=== PATIENT | female | born 1970 | race Caucasian/White ===

== ENCOUNTER 2017-04-15 08:51 | Emergency (ER) | payer MEDICAID, OTHER ==
[2017-04-15] MEDS ORDERED: SODIUM CHLORIDE 0.9% 1,000 ML IV STA ×2 (09:07)
[2017-04-15 09:26] LABS: Basophils % (A) 1 %; CH 34.2; CHCM 35.9; Eosinophils # (A) 0.2 k/uL (0-0.7); Eosinophils % (A) 2 %; HCT 44.2 % (34.0-46.0); HDW 2.43; HGB 15.2 gm/dL (11.4-16.0); Luc # (Auto) 0.12; Luc % (Auto) 2; Lymphocytes # (A) 1.9 k/uL (1.0-4.8); Lymphocytes % (A) 29 %; MCH 32.8 pg (25.0-35.0); MCHC 34.3 g/dL (31.0-37.0); MCV 95.6 fL (80.0-100.0); Mean Platelet Volume 7.1; Monocytes # (A) 0.3 k/uL (0-1.0); Monocytes % (A) 5 %; Neutrophils # (A) 4.1 k/uL (1.3-7.7); Neutrophils % (A) 62 %; RBC 4.62 m/uL (3.80-5.40); RDW 13.1 % (11.5-15.5); WBC 6.7 k/uL (3.8-10.6); WBC (Perox) 6.43
[2017-04-15 09:37] LABS: ALT 43 U/L (9-52); AST 30 U/L (14-36); Alkaline Phosphatase 90 U/L (38-126); Anion Gap 13 mmol/L; Blood Urea Nitrogen 6 mg/dL (7-17); Calcium 9.3 mg/dL (8.4-10.2); Carbon Dioxide 23 mmol/L (22-30); Chloride 106 mmol/L (98-107); Glucose 93 mg/dL (74-99); Magnesium 1.8 mg/dL (1.6-2.3); Non-African American GFR(MDRD) >60 (>60 ml/min/1.73 sqM); Potassium 4.6 mmol/L (3.5-5.1); Sodium 142 mmol/L (137-145); Total Bilirubin 0.4 mg/dL (0.2-1.3); Total Protein 7.4 g/dL (6.3-8.2)
[2017-04-15 09:50] LABS: INR 0.9 (<1.2); Partial Thromboplastin Time 22.7 sec (22.0-30.0); Prothrombin Time 9.7 sec (9.0-12.0)
[2017-04-15 09:51] LABS: Creatine Kinase 33 U/L (30-135)
--- NOTE | 2017-04-15 09:53 | XR ---
EXAMINATION TYPE: XR chest 2V DATE OF EXAM: 04/15/2017 COMPARISON: NONE HISTORY: Chest Pain TECHNIQUE: Frontal and lateral views of the chest are obtained. FINDINGS: There is no focal air space opacity, pleural effusion, or pneumothorax seen. The cardiac silhouette size is within normal limits. The osseous structures are intact. IMPRESSION: No acute cardiopulmonary process.
[2017-04-15 10:03] LABS: Creatine Kinase MB 0.4 ng/mL (0.0-2.4); Troponin I <0.012 ng/mL (0.000-0.034)
[2017-04-15 10:34] VITALS: PULSE 73; RESP 19
--- NOTE | 2017-04-15 10:46 | ED ---
General Adult HPI - General Chief complaint: Chest Pain Stated complaint: Chest Pain Time Seen by Provider: 04/15/17 08:53 Source: patient, family, EMS, RN notes reviewed, old records reviewed Mode of arrival: EMS - History of Present Illness Initial comments: 47 yo female with no significant past medical history presents with palpitations and chest tightness. Patient was at work this morning. She be and feeling flushed and lightheaded. She developed some anterior chest tightness with associated shortness of breath. Patient does report being under a lot of stress her mother is sick, and she is in the middle of a bad relationship. She also admits to having a poor night's sleep. Patient was given aspirin and nitroglycerin by EMS prior to arrival. There was no change in her symptoms. She also reports a headache and some nasal congestion. - Related Data Home Medications Medication Instructions Recorded Confirmed Acetaminophen [Tylenol] 650 mg PO Q4H PRN 04/15/17 04/15/17 Allergies Allergy/AdvReac Type Severity Reaction Status Date / Time No Known Allergies Allergy Verified 04/15/17 09:19 Review of Systems ROS Statement: Those systems with pertinent positive or pertinent negative responses have been documented in the HPI. ROS Other: All systems not noted in ROS Statement are negative. Past Medical History Past Medical History: No Reported History Past Surgical History: Breast Surgery, Section Past Psychological History: No Psychological Hx Reported Smoking Status: Never smoker Past Alcohol Use History: Occasional Past Drug Use History: None Reported General Exam Limitations: no limitations General appearance: alert, in no apparent distress Head exam: Present: atraumatic, normocephalic Eye exam: Present: normal appearance, PERRL, EOMI. Absent: scleral icterus, conjunctival injection ENT exam: Present: normal exam Neck exam: Present: normal inspection. Absent: tenderness, meningismus Respiratory exam: Present: normal lung sounds bilaterally. Absent: respiratory distress, wheezes Cardiovascular Exam: Present: regular rate, normal rhythm, normal heart sounds GI/Abdominal exam: Present: soft. Absent: distended, tenderness Extremities exam: Present: normal inspection, full ROM, normal capillary refill. Absent: pedal edema Neurological exam: Present: alert, oriented X3, CN II-XII intact. Absent: motor sensory deficit Psychiatric exam: Present: normal affect, anxious Skin exam: Present: warm, dry, cyanosis. Absent: diaphoretic Course Vital Signs 04/15/17 04/15/17 04/15/17 08:53 10:00 10:28 Temperature 99.2 F Pulse Rate 75 73 Respiratory 18 19 Rate Blood Pressure 103/81 121/71 O2 Sat by Pulse 96 100 Oximetry - Reevaluation(s) Reevaluation #1: 04/15/17 10:42 On reevaluation, patient is feeling much better. She is accompanied by her daughter and grandson. EKG Findings - EKG Comments: EKG Findings:: EKG shows normal sinus rhythm with sinus arrhythmia, rate 84, AR interval 146, QRS duration 80, QTc 427. No ST segment elevation or depression. Medical Decision Making - Medical Decision Making 27 yo female presents with palpitations, anterior chest tightness, and anxiety. Patient is dealing with a lot. She does report poor night's sleep, she is doing with a bad relationship and sick mother. Symptoms were not at all relieved by nitroglycerin which was administered by EMS prior to arrival. EKG is nonischemic. Chest x-ray shows no acute findings. Laboratory studies including CBC, CMP, d-dimer, and cardiac enzymes are unremarkable. I did reevaluate the patient she was feeling much better. She does believe the symptoms are related to anxiety. She does not currently have a primary care physician. She'll be given outpatient follow-up. She is also given a short supply of Xanax, which she is instructed to take only at home, no driving, may cause drowsiness. Diagnosis: Chest tightness likely anxiety. - Lab Data Result diagrams: 04/15/17 09:16 04/15/17 09:16 Lab Results 04/15/17 04/15/17 04/15/17 Range/Units 09:16 09:16 09:16 WBC 6.7 (3.8-10.6) k/uL RBC 4.62 (3.80-5.40) m/uL Hgb 15.2 (11.4-16.0) gm/dL Hct 44.2 (34.0-46.0) % MCV 95.6 (80.0-100.0) fL MCH 32.8 (25.0-35.0) pg MCHC 34.3 (31.0-37.0) g/dL RDW 13.1 (11.5-15.5) % Plt Count 319 (150-450) k/uL Neutrophils % 62 % Lymphocytes % 29 % Monocytes % 5 % Eosinophils % 2 % Basophils % 1 % Neutrophils # 4.1 (1.3-7.7) k/uL Lymphocytes # 1.9 (1.0-4.8) k/uL Monocytes # 0.3 (0-1.0) k/uL Eosinophils # 0.2 (0-0.7) k/uL Basophils # 0.0 (0-0.2) k/uL PT (9.0-12.0) sec INR (<1.2) APTT (22.0-30.0) sec D-Dimer (<0.60) mg/L FEU Sodium 142 (137-145) mmol/L Potassium 4.6 (3.5-5.1) mmol/L Chloride 106 (98-107) mmol/L Carbon Dioxide 23 (22-30) mmol/L Anion Gap 13 mmol/L BUN 6 L (7-17) mg/dL Creatinine 0.62 (0.52-1.04) mg/dL Est GFR (MDRD) Af Amer >60 (>60 ml/min/1.73 sqM) Est GFR (MDRD) Non-Af >60 (>60 ml/min/1.73 sqM) Glucose 93 (74-99) mg/dL Calcium 9.3 (8.4-10.2) mg/dL Magnesium 1.8 (1.6-2.3) mg/dL Total Bilirubin 0.4 (0.2-1.3) mg/dL AST 30 (14-36) U/L ALT 43 (9-52) U/L Alkaline Phosphatase 90 (38-126) U/L Total Creatine Kinase 33 (30-135) U/L CK-MB (CK-2) 0.4 (0.0-2.4) ng/mL CK-MB (CK-2) Rel Index 1.2 Troponin I <0.012 (0.000-0.034) ng/mL Total Protein 7.4 (6.3-8.2) g/dL Albumin 4.4 (3.5-5.0) g/dL Lipase 228 (23-300) U/L 04/15/17 Range/Units 09:16 WBC (3.8-10.6) k/uL RBC (3.80-5.40) m/uL Hgb (11.4-16.0) gm/dL Hct (34.0-46.0) % MCV (80.0-100.0) fL MCH (25.0-35.0) pg MCHC (31.0-37.0) g/dL RDW (11.5-15.5) % Plt Count (150-450) k/uL Neutrophils % % Lymphocytes % % Monocytes % % Eosinophils % % Basophils % % Neutrophils # (1.3-7.7) k/uL Lymphocytes # (1.0-4.8) k/uL Monocytes # (0-1.0) k/uL Eosinophils # (0-0.7) k/uL Basophils # (0-0.2) k/uL PT 9.7 (9.0-12.0) sec INR 0.9 (<1.2) APTT 22.7 (22.0-30.0) sec D-Dimer 0.33 (<0.60) mg/L FEU Sodium (137-145) mmol/L Potassium (3.5-5.1) mmol/L Chloride (98-107) mmol/L Carbon Dioxide (22-30) mmol/L Anion Gap mmol/L BUN (7-17) mg/dL Creatinine (0.52-1.04) mg/dL Est GFR (MDRD) Af Amer (>60 ml/min/1.73 sqM) Est GFR (MDRD) Non-Af (>60 ml/min/1.73 sqM) Glucose (74-99) mg/dL Calcium (8.4-10.2) mg/dL Magnesium (1.6-2.3) mg/dL Total Bilirubin (0.2-1.3) mg/dL AST (14-36) U/L ALT (9-52) U/L Alkaline Phosphatase (38-126) U/L Total Creatine Kinase (30-135) U/L CK-MB (CK-2) (0.0-2.4) ng/mL CK-MB (CK-2) Rel Index Troponin I (0.000-0.034) ng/mL Total Protein (6.3-8.2) g/dL Albumin (3.5-5.0) g/dL Lipase (23-300) U/L Disposition Clinical Impression: Chest pain, Panic attack Disposition: HOME SELF-CARE Condition: Good Instructions: Chest Pain (ED), Anxiety (ED) Referrals: None,Stated [Primary Care Provider] - 1-2 days Diana Preciado MD [STAFF PHYSICIAN] - 1-2 days Time of Disposition: 10:45
[2017-04-15 10:58] VITALS: BP 115/59
[2017-04-15 11:40] VITALS: TEMP 99.1
== END 2017-04-15 11:41 | disposition home or self-care (01) ==
LOC: EC 08:51
DX: R07.89 Other chest pain (principal); F41.0 Panic disorder [episodic paroxysmal anxiety]; R00.2 Palpitations; R42 Dizziness and giddiness; R06.02 Shortness of breath; R51 Headache; R09.81 Nasal congestion; F43.9 Reaction to severe stress, unspecified; R23.2 Flushing
CPT/HCPCS: 36415; 71020; 80053; 82550; 82553; 83690; 83735; 84484; 85025; 85379; 85610; 85730; 93005; 96360; 96361; 99285

== ENCOUNTER 2017-07-11 22:31 | Emergency (ER) | payer MEDICAID ==
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
[2017-07-11 23:57] LABS: Basophils # (A) 0.1 k/uL (0-0.2); Basophils % (A) 1 %; CHCM 33.8; Eosinophils # (A) 0.1 k/uL (0-0.7); Eosinophils % (A) 2 %; HCT 49.2 % (34.0-46.0); HDW 2.26; HGB 15.9 gm/dL (11.4-16.0); Luc # (Auto) 0.13; Luc % (Auto) 2; Lymphocytes # (A) 3.1 k/uL (1.0-4.8); Lymphocytes % (A) 44 %; MCH 31.8 pg (25.0-35.0); MCHC 32.4 g/dL (31.0-37.0); MCV 98.1 fL (80.0-100.0); Mean Platelet Volume 7.7; Monocytes # (A) 0.3 k/uL (0-1.0); Monocytes % (A) 5 %; Neutrophils # (A) 3.3 k/uL (1.3-7.7); Neutrophils % (A) 47 %; RBC 5.01 m/uL (3.80-5.40); RDW 12.7 % (11.5-15.5); WBC (Perox) 6.67
[2017-07-12 00:07] LABS: Acetaminophen <10.0 ug/mL; Anion Gap 13 mmol/L; Blood Urea Nitrogen 8 mg/dL (7-17); Calcium 9.6 mg/dL (8.4-10.2); Carbon Dioxide 22 mmol/L (22-30); Chloride 103 mmol/L (98-107); Glucose 89 mg/dL (74-99); Non-African American GFR(MDRD) >60 (>60 ml/min/1.73 sqM); Potassium 4.4 mmol/L (3.5-5.1); Salicylate <1.0 mg/dL; Sodium 138 mmol/L (137-145)
[2017-07-12 00:10] LABS: Alcohol 268 mg/dL
[2017-07-12 09:01] VITALS: BP 138/73; PULSE 95; RESP 19; TEMP 97.2
== END 2017-07-12 09:16 | disposition home or self-care (01) ==
LOC: EC 22:31
DX: F43.21 Adjustment disorder with depressed mood (principal); F10.129 Alcohol abuse with intoxication, unspecified; F32.9 Major depressive disorder, single episode, unspecified; F41.9 Anxiety disorder, unspecified; Z86.14 Personal history of Methicillin resistant Staphylococcus aureus infection; Z79.899 Other long term (current) drug therapy
CPT/HCPCS: 36415; 80048; 80306; 80320; 81025; 82075; 83520; 85025; 99284

== ENCOUNTER → 2018-01-22 | Outpatient (CLI) | payer MEDICAID ==
[2018-01-22 10:03] LABS: ALT 59 U/L (9-52); AST 46 U/L (14-36); Albumin 4.5 g/dL (3.5-5.0); Alkaline Phosphatase 83 U/L (38-126); Anion Gap 13 mmol/L; Blood Urea Nitrogen 12 mg/dL (7-17); Calcium 9.9 mg/dL (8.4-10.2); Carbon Dioxide 26 mmol/L (22-30); Chloride 105 mmol/L (98-107); Glucose 100 mg/dL (74-99); Potassium 4.7 mmol/L (3.5-5.1); Sodium 144 mmol/L (137-145); Total Bilirubin 0.5 mg/dL (0.2-1.3); Total Protein 7.4 g/dL (6.3-8.2)
[2018-01-22 10:19] LABS: T4, Free (Free Thyroxine) 1.13 ng/dL (0.78-2.19)
[2018-01-22 10:40] LABS: Appearance,Urine Cloudy (Clear); Bacteria,Urine Rare /hpf; Bilirubin,Urine Negative (Negative); Blood,Urine Negative (Negative); Color,Urine Yellow; Glucose,Urine (UA) Negative (Negative); Ketones,Urine Negative (Negative); Leukocyte Esterase,Urine Large (Negative); Mucus,Urine Rare /hpf; Nitrite,Urine Negative (Negative); PH, Urine 5.5 (5.0-8.0); Protein,Urine Negative (Negative); RBC,Urine 1 /hpf (0-5); Specific Gravity,Urine 1.016 (1.001-1.035); Squamous Epithelial Cell,Urine 9 /hpf (0-4); Urobilinogen,Urine <2.0 mg/dL (<2.0); WBC,Urine 29 /hpf (0-5)
[2018-01-22 17:22] LABS: Thyroid Peroxidase Antibodies <28.0 U/mL (0.0-60.0)
[2018-01-24 22:52] LABS: Hepatitis A Antibody IgM Non-Reactive (Non-Reactive); Hepatitis B Core IgM Non-Reactive (Non-Reactive)
== END | disposition home or self-care (01) ==
LOC: LABWHC1 09:29
PROVIDERS: ATTEND Nurse Practitioner Family
DX: F41.9 Anxiety disorder, unspecified (principal); R53.83 Other fatigue; R00.2 Palpitations
CPT/HCPCS: 36415; 80053; 80074; 81001; 83036; 84439; 84443; 84480; 86376

== ENCOUNTER 2018-08-15 11:19 | Emergency (ER) | payer MEDICAID, OTHER ==
[2018-08-15 11:40] VITALS: RESP 18
--- NOTE | 2018-08-15 12:14 | ED ---
General Adult HPI - General Chief complaint: Extremity Injury, Lower Stated complaint: [facility]-Hip Pain Time Seen by Provider: 08/15/18 11:46 Source: patient, RN notes reviewed Mode of arrival: ambulatory Limitations: no limitations - History of Present Illness Initial comments: Patient 48-year-old male presenting to the emergency room today with a chief complaint of right sided hip pain. Patient does admit that symptoms started yesterday. 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 She states she was holding him up as he was rolled in the bed and she felt some pain in the right hip area. She does admit that it is radiated down mid right thigh. Does admit that it's worse with movements of the right hip when she goes to extend or flex at the area. States she went back to work today and did talk one of the nurses there was advised coming to emergency room for evaluation. She denies any bowel or bladder incontinence retention. Denies any saddle anesthesia. Patient states she's tried 1 ibuprofen at home with little relief. She denies any other complaints or symptoms. Patient denies any recent fever, chills, shortness of breath, chest pain, neck pain, abdominal pain, nausea or vomiting, headaches or visual changes , or any other complaints. - Related Data Home Medications Medication Instructions Recorded Confirmed Phentermine HCl [Adipex-P] 37.5 mg PO QAM 07/11/17 07/11/17 Sulfamethox-Tmp 800-160Mg [Bactrim 1 tab PO Q12HR 07/11/17 07/11/17 DS 800-160 mg] busPIRone HCL [Buspar] 7.5 mg PO BID 07/11/17 07/11/17 Previous Rx's Medication Instructions Recorded Ibuprofen [Motrin] 600 mg PO Q8HR PRN #30 tab 06/23/17 Cyclobenzaprine [Flexeril] 10 mg PO TID #20 tab 08/15/18 Dexamethasone 0.75 mg PO DIRECTED #12 tablet 08/15/18 Ibuprofen [Motrin] 800 mg PO Q6HR #30 tab 08/15/18 Allergies Allergy/AdvReac Type Severity Reaction Status Date / Time No Known Allergies Allergy Verified 08/15/18 11:40 Review of Systems ROS Statement: Those systems with pertinent positive or pertinent negative responses have been documented in the HPI. ROS Other: All systems not noted in ROS Statement are negative. Past Medical History Past Medical History: No Reported History Additional Past Medical History / Comment(s): on the borderline for high cholesterol History of Any Multi-Drug Resistant Organisms: MRSA Date of last positivie culture/infection: 06/23/17 MDRO Source:: TOE Past Surgical History: Breast Surgery, Section Past Psychological History: Anxiety, Depression Smoking Status: Never smoker Past Alcohol Use History: Occasional Past Drug Use History: None Reported General Exam - General Exam Comments Initial Comments: General: The patient is awake and alert, in no distress, and does not appear acutely ill. Musculoskeletal: Normal ROM. Normal appearance of the thoracic, lumbar spine with no step-off or deformity. Mild tenderness lower lumbar at the L3 to L5 area. Paravertebral tenderness over the right side of the lower lumbar spine to the SI joint. Strength 5/5. Sensation intact. Pulses equal bilaterally 2+. Neurological: A&O x 3. CN II-XII intact, There are no obvious motor or sensory deficits. Coordination appears grossly intact. Speech is normal. Skin: Skin is warm and dry and no rashes or lesions are noted. Psychiatric: Cooperative, appropriate mood & affect, normal judgment. Limitations: no limitations Course Vital Signs 08/15/18 11:37 Temperature 97.9 F Pulse Rate 78 Respiratory 18 Rate Blood Pressure 136/82 O2 Sat by Pulse 98 Oximetry Medical Decision Making - Medical Decision Making Options discussed with patient about x-ray here the emergency room. Patient states she feels comfortable following up. Patient treated with anti- inflammatories and muscle laxer for possible muscle strain. She does have some pain that radiates into the right thigh. Was discussed about using steroids. Advised to try muscle relaxer and anti-inflammatories first if there is no relief over the next few days that she may use steroid. Advised follow-up the family doctor for further evaluation. Advised to return if any symptoms increase worsen or for any other concerns. Disposition Clinical Impression: Acute lumbar radiculopathy Disposition: HOME SELF-CARE Condition: Good Instructions: Lumbar Radiculopathy (ED) Additional Instructions: Please use medication as discussed. Please follow-up with family doctor in the next 2 days of symptoms have not improved. Please return to emergency room if the symptoms increase or worsen or for any other concerns. Prescriptions: Cyclobenzaprine [Flexeril] 10 mg PO TID #20 tab Dexamethasone 0.75 mg PO DIRECTED #12 tablet Ibuprofen [Motrin] 800 mg PO Q6HR #30 tab Is patient prescribed a controlled substance at d/c from ED?: No Referrals: None,Stated [Primary Care Provider] - 1-2 days Time of Disposition: 12:14
[2018-08-15 12:56] VITALS: BP 138/99; PULSE 75; TEMP 97.5
== END 2018-08-15 12:54 | disposition home or self-care (01) ==
LOC: EC 11:19
DX: M54.16 Radiculopathy, lumbar region (principal); F41.9 Anxiety disorder, unspecified; F32.9 Major depressive disorder, single episode, unspecified; Z86.14 Personal history of Methicillin resistant Staphylococcus aureus infection; Z79.899 Other long term (current) drug therapy
CPT/HCPCS: 99282

== ENCOUNTER → 2018-08-18 | Outpatient (CLI) | payer OTHER ==
--- NOTE | 2018-08-18 13:18 | XR ---
Right hip HISTORY: Trauma and pain 2 views of the right hip Mild osteoarthritic changes present. Joint space and alignment, bone mineralization relatively mainta ined. IMPRESSION: No fracture or dislocation.
--- NOTE | 2018-08-18 13:23 | XR ---
Lumbar spine HISTORY: Trauma and pain Views of the lumbar spine, no comparisons Lumbar vertebral bodies show preserved height, alignment, bone mineralization. There is multilevel sp ondylosis. Disc height mildly reduced at the intervertebral levels L4-5 and L5-S1. IMPRESSION: Degenerative disc disease. No acute fracture or subluxation. Lumbar MRI may be of benefit .
== END | disposition home or self-care (01) ==
LOC: RADXRMAIN 12:39
PROVIDERS: ATTEND Emergency Medicine
DX: M51.36 Other intervertebral disc degeneration, lumbar region (principal); S73.101A Unspecified sprain of right hip, initial encounter
CPT/HCPCS: 72100; 73502